=== PATIENT | female | born 1990 | race Hispanic/Latino ===

== ENCOUNTER 2024-03-21 16:34 | Emergency (ER) | payer MEDICARE ==
[~2024-03-21] VITALS: Ht 157.5 cm; Wt 74.8 kg
[2024-03-21] MEDS: HYDROCODONE/ACETAMINOPHEN 5/325 MG TAB PO ONE (16:57)
[2024-03-21] MEDS: CLINDAMYCIN 150 MG CAP PO ONE (16:57)
[2024-03-21 17:19] VITALS: BP 128/73; PULSE 85; RESP 16; O2SAT 100
[2024-03-21] MEDS: LIDOCAINE HCL 1% 20 ML VIAL INJ SCH (17:28)
[2024-03-21] MEDS ORDERED: CLIN-141 PO (17:31)
[2024-03-21] MEDS ORDERED: ACET-2079 PO (17:31)
== END 2024-03-21 17:50 | disposition home or self-care (01) ==
LOC: EDH 16:34
DX: N75.0 Cyst of Bartholin's gland (principal); F41.9 Anxiety disorder, unspecified; Z79.899 Other long term (current) drug therapy
CPT/HCPCS: 56420; 87070